=== PATIENT | male | born 1990 | race Two or more races ===

== ENCOUNTER 2019-09-20 21:33 | Emergency (ER) | payer SELFPAY ==
[~2019-09-20] VITALS: Ht 177.8 cm; Wt 100.0 kg
[2019-09-20 22:00] VITALS: BP 116/86
[2019-09-20 22:45] LABS: INFLUENZA A PATIENT NEGATIVE (NEGATIVE)
[2019-09-20 22:47] LABS: INFLUENZA B PATIENT POSITIVE (NEGATIVE)
[2019-09-20] MEDS ORDERED: ONDA4TAB12 PO (22:52)
[2019-09-20] MEDS ORDERED: OSEL75CA PO (22:52)
[2019-09-20] MEDS ORDERED: IBUP-1007 PO (22:52)
--- NOTE | 2019-09-20 22:52 | PHYS DOC ---
Past Medical History Past Medical History: No Pertinent History (RADHAMES RENDON APRN) Past Surgical History: No Surgical History (RADHAMES RENDON APRN) Smoking Status: Never Smoker Alcohol Use: Rarely (RADHAMES RENDON APRN) Attending Signature I have participated in the care of this patient and I have reviewed and agree with all pertinent clinical information above including history, exam, and recommendations. (ALE COWAN MD) Adult General Chief Complaint Chief Complaint: FLU SYMPTOM HPI HPI Patient is a 29 year old male who presents with fever, chills, bodyaches, diarrhea for the last 2 days. Patient states he did vomit twice this morning. He last took Motrin at 1300 today. Rates his pain a 9 out of 10. (RADHAMES RENDON APRN) Review of Systems Review of Systems Constitutional: fever or chills [] GI: Denies abdominal pain. + nausea, +vomiting, denies bloody stools or +diarrhea [] Musculoskeletal: Bodyaches. Denies back pain or joint pain [] All other systems were reviewed and found to be within normal limits, except as documented in this note. (RADHAMES RENDON APRN) Current Medications Current Medications Current Medications Medications (Trade) Dose Ordered Sig/Jennifer Start Time Stop Time Status Last Admin Dose Admin Ibuprofen (Motrin) 600 mg 1X ONCE 09/20/19 23:00 09/20/19 23:01 DC 09/20/19 22:36 600 MG (ALE COWAN MD) Allergies Allergies Allergies Coded Allergies Type Severity Reaction Last Updated Verified No Known Drug Allergies 09/20/19 No (ALE COWAN MD) Physical Exam Physical Exam Constitutional: Well developed, well nourished, no acute distress, non-toxic appearance. [] HENT: Normocephalic, atraumatic, bilateral external ears normal, oropharynx ileana st, no oral exudates, nose normal. [] Eyes: PERRLA, EOMI, conjunctiva normal, no discharge. [] Neck: Normal range of motion, no tenderness, supple, no stridor. [] Cardiovascular:Heart rate regular rhythm, no murmur [] Lungs & Thorax: Bilateral breath sounds clear to auscultation [] Abdomen: Bowel sounds normal, soft, no tenderness, no masses, no pulsatile masses. [] Skin: Warm, dry, no erythema, no rash. [] Back: No tenderness, no CVA tenderness. [] Extremities: No tenderness, no cyanosis, no clubbing, ROM intact, no edema. [] Neurologic: Alert and oriented X 3, normal motor function, normal sensory function, no focal deficits noted. [] Psychologic: Affect normal, judgement normal, mood normal. Normal physical exam[] (RADHAMES RENDON APRN) Current Patient Data Vital Signs Vital Signs Date Time Temp Pulse Resp B/P (MAP) Pulse Ox O2 Delivery O2 Flow Rate FiO2 09/20/19 22:00 100.7 112 18 116/86 (96) 98 Room Air 100.7 (ALE COWAN MD) Lab Values Laboratory Tests Test 09/20/19 22:19 Influenza Type A Antigen Negative (NEGATIVE) Influenza Type B Antigen Positive (NEGATIVE) (ALE COWAN MD) EKG EKG [] (RADHAMES RENDON APRN) Radiology/Procedures Radiology/Procedures [] (RADHAMES RENDON APRN) Course & Med Decision Making Course & Med Decision Making Pertinent Labs and Imaging studies reviewed. (See chart for details) Alert and oriented. Speaks in full sentences. Skin pink warm and dry. Ambulatory with a steady gait. Patient is given Motrin the ED as he is febrile. Lungs clear to auscultation in all lobes. Throat is pink without exudates or swelling. Bilateral tympanic is white. Abdomen soft and nontender. Patient Is influenza B-positive. [] (RADHAMES RENDON APRN) Dragon Disclaimer Dragon Disclaimer This electronic medical record was generated, in whole or in part, using a voice recognition dictation system. (RADHAMES RENDON APRN) Departure Departure Impression: Primary Impression: Influenza B Disposition: 01 HOME, SELF-CARE Condition: STABLE Referrals: NO PCP (PCP) Patient Instructions: Influenza, Adult Additional Instructions: Take medication with food and as prescribed. Drink plenty of fluids. Follow-up with her primary care provider. I f you are unable to keep down any fluids or food return to the ED. Scripts Ibuprofen (IBUPROFEN) 600 Mg Tablet 600 MG PO PRN Q6HRS PRN for INFLAMMATION, #25 TAB Prov: RADHAMES RENDON APRN 09/20/19 Ondansetron (ONDANSETRON ODT) 4 Mg Tab.rapdis 1 TAB PO PRN Q6-8HRS, #20 TAB Prov: RADHAMES RENDON APRN 09/20/19 Oseltamivir Phosphate (TAMIFLU) 75 Mg Capsule 1 CAP PO BID, #10 CAP Prov: RADHAMES RENDON APRN 09/20/19 RADHAMES RENDON APRN Sep 20, 2019 22:52 ALE COWAN MD Sep 20, 2019 23:40
[2019-09-20] MEDS ORDERED: IBUPROFEN 200 MG TABLET. PO ONE (23:00)
== END 2019-09-20 23:08 | disposition home or self-care (01) ==
LOC: ER 21:33
DX: J10.1 Influenza due to other identified influenza virus with other respiratory manifestations (principal); R11.2 Nausea with vomiting, unspecified; R19.7 Diarrhea, unspecified
CPT/HCPCS: 87804; 99283